=== PATIENT | male | born 1970 | race Caucasian/White ===

== ENCOUNTER 2016-11-25 10:09 | Emergency (ER) | payer OTHER ==
[~2016-11-25] VITALS: Ht 185.4 cm; Wt 118.8 kg
[2016-11-25 10:29] VITALS: BP 162/97
== END 2016-11-25 14:23 | disposition home or self-care (01) ==
LOC: ER 10:12
DX: L03.312 Cellulitis of back [any part except buttock and flank] (principal); Z88.6 Allergy status to analgesic agent; Z88.8 Allergy status to other drugs, medicaments and biological substances